=== PATIENT | male | born 1945 | race Caucasian/White ===

== ENCOUNTER 2017-08-10 07:00 | Day surgery (SDC) | payer MEDICARE ==
[~2017-08-10] VITALS: Ht 157.5 cm; Wt 82.6 kg
[~2017-08-10 07:00] MED LIST: ACETAMIN500 M1 OR; ACIPHEX20 MG OR; BABY ASPIRIN81 MG OR; BACTRIM DS1 TAB PO; COUMADIN5 MG OR; COUMADIN7.5 MG OR; DIGOXIN0.125 MG PO; DIGOXIN0.25 MG OR; FENOFIBRATE145 MG PO; FISH OIL1000 MG PO; FISH OIL1200 M1 OR; LEVOTHYROXIN25 MC1 OR; LEVOTHYROXIN50 MC1 OR; LORATADINE10 M1 PO; LORTAB 5/3255 MG PO; LORTAB 7.5 OR; LOVENOX 8080 MG/0.8 SC; METOPROL TAR100 MG PO; METOPROLOL100 M1 OR; MULTI 501 PO; NADOLOL20 MG PO; PRAVASTATIN20 MG PO; PRILOSEC40 MG PO; PROTONIX40 M2 OR; SIMVASTATIN10 MG PO; TERAZOSIN2 MG OR; TRICOR145 MG OR; VYTORIN 10/201 TAB OR; VYTORIN 10/401 TAB OR; [UNRECOGNIZED DRUG - OTHER] PO; [UNRECOGNIZED DRUG - REMARK]
[2017-08-10 09:25] VITALS: BP 123/73
== END 2017-08-10 08:38 | disposition home or self-care (01) ==
LOC: ENDO 07:00 → PO 08:40 → ORM 10:15
PROVIDERS: ATTEND Surgery
PROC: 0DJD8ZZ Inspection of Lower Intestinal Tract, Via Natural or Artificial Opening Endoscopic (ICD-10-PCS; principal; 2017-08-10)
PROC: 0DB58ZX Excision of Esophagus, Via Natural or Artificial Opening Endoscopic, Diagnostic (ICD-10-PCS; 2017-08-10)
DX: K62.5 Hemorrhage of anus and rectum (principal); K21.0 Gastro-esophageal reflux disease with esophagitis; K29.70 Gastritis, unspecified, without bleeding; K64.8 Other hemorrhoids; I48.91 Unspecified atrial fibrillation; E78.5 Hyperlipidemia, unspecified; E03.9 Hypothyroidism, unspecified; Z79.01 Long term (current) use of anticoagulants; Z86.010 Personal history of colon polyps

== ENCOUNTER → 2017-12-14 | Outpatient (REF) | payer MEDICARE ==
[2017-12-14 13:32] LABS: C. DIFFICILE TOXIN A&B NEGATIVE (NEGATIVE)
== END | disposition home or self-care (01) ==
LOC: LAB 10:49
PROVIDERS: ATTEND Nurse Practitioner
DX: R19.7 Diarrhea, unspecified (principal)

== ENCOUNTER → 2018-04-28 | Outpatient (REF) | payer MEDICARE | END | disposition home or self-care (01) | LOC: CT 08:44 | PROVIDERS: ATTEND Nurse Practitioner | DX: R10.9 Unspecified abdominal pain (principal); R10.2 Pelvic and perineal pain ==

== ENCOUNTER → 2018-05-12 | Outpatient (REF) | payer MEDICARE | END | disposition home or self-care (01) | LOC: ULTRASND 10:25 | PROVIDERS: ATTEND Surgery | DX: N45.1 Epididymitis (principal) ==

== ENCOUNTER → 2018-05-23 | Outpatient (REF) | payer MEDICARE ==
[2018-05-23 08:29] LABS: INTERNATIONAL NORMALIZED RATIO 2.8 RATIO (0.7-1.3); PROTHROMBIN TIME 28.9 SECONDS (9.0-12.5)
== END | disposition home or self-care (01) ==
LOC: LAB 07:38
PROVIDERS: ATTEND Internal Medicine
DX: Z51.81 Encounter for therapeutic drug level monitoring (principal); Z79.01 Long term (current) use of anticoagulants

== ENCOUNTER 2019-02-02 13:02 | Observation (INO) | payer MEDICARE ==
[~2019-02-02] VITALS: Ht 157.5 cm; Wt 81.0 kg
--- NOTE | 2019-02-02 13:23 | NUR ---
PT TRIAGED AND BACK TO WAITING ROOM, RELATED BUSY ER. PT VERBALIZES UNDERSTANDING WILL PULL SOON ROOM AVAILABLE
--- NOTE | 2019-02-02 13:49 | NUR ---
DAVID AT BEDSIDE FOR ASSESSMENT
[2019-02-02] MEDS ORDERED: METOPROL TAR100 MG PO (14:12)
[2019-02-02] MEDS ORDERED: LIPITOR40 M1 PO (14:12)
[2019-02-02] MEDS ORDERED: TAMSULOSIN HCL0.4 MG PO (14:22)
[2019-02-02 14:30] LABS: HEMOGLOBIN 15.1 g/dl (14.0-18.0); MEAN CELL VOLUME 96.6 fL CALC (80.0-100.0); MEAN CORPUSCULAR HGB 33.9 pG CALC (26.0-32.0); MEAN CORPUSCULAR HGB CONC 35.1 g/L CALC (32.0-36.0); NEUT# 2.25 thou/uL (1.82-7.42); RED BLOOD COUNT 4.45 mill/uL (4.70-6.10)
--- NOTE | 2019-02-02 14:37 | NUR ---
PT SITTING UP ON STRETHCER; NO S/S OF DISTRESS NOTED; MEAL TRAY PROVIDED; VSS; WILL CONTINUE TO MONITOR
[2019-02-02 15:10] LABS: ALBUMIN 3.3 g/dL (3.2-5.0); ALKALINE PHOSPHATASE 177 u/l (38-126); ANION GAP 16 (6-22 (CALC)); BUN 18 mg/dL (8-23); BUN/CREATININE RATIO 19 (12-20 (CALC)); CARBON DIOXIDE 22 mmol/l (22-30); CHLORIDE 104 mmol/l (95-108); GFR > 60 ML/MIN (>=60 (CALC)); GFR FOR AFR.AMER. > 60 ML/MIN (>=60 (CALC)); POTASSIUM 4.8 mmol/l (3.5-5.1); SGOT/AST 641 u/l (19-48); SODIUM 137 mmol/l (137-146); TOTAL PROTEIN 7.2 g/dL (6.3-8.2)
--- NOTE | 2019-02-02 15:23 | NUR ---
PT RESTING ON STRETCHER; NO S/S OF DISTRESS NOTED; VSS; MONITORING DEVICES IN PLACE; WILL CONTINUE TO MONITOR
[2019-02-02 15:59] LABS: ACT PARTIAL THROMBO TIME 81.5 SECONDS (20.0-32.5)
--- NOTE | 2019-02-02 16:20 | NUR ---
PT RESTING ON STRETCHER; NO S/S OF DISTRESS NOTED; PT UPDATED ON POC AND CONTINUE WAIT TIME; CALL LIGHT WITHIN REACH WILL CONTINUE TO MONITOR
[2019-02-02 16:28] LABS: PROTHROMBIN TIME > 125.0 SECONDS (9.0-12.5)
[2019-02-02 16:47] LABS: URINE BILIRUBIN - DIPSTICK NEGATIVE (NEGATIVE); URINE BLOOD DIPSTICK NEGATIVE (NEGATIVE); URINE COLOR YELLOW; URINE GLUCOSE - DIPSTICK NEGATIVE (NEGATIVE); URINE KETONE NEGATIVE (NEGATIVE); URINE LEUK ESTERASE NEGATIVE (NEGATIVE); URINE NITRITE - DIPSTICK NEGATIVE (Negative); URINE PROTEIN - DIPSTICK NEGATIVE (NEG-TRACE); URINE SPECIFIC GRAVITY 1.025; URINE UROBILINOGEN - DIPSTICK 0.2 E.U./dL (0.2)
--- NOTE | 2019-02-02 17:20 | NUR ---
PT RESTING ON STRETCHER; NO S/S OF DISTRESS NOTED; VSS; WILL CONTINUE TO MONITOR
--- NOTE | 2019-02-02 17:54 | NUR ---
PT MEDICATED WITH VIT K PER MAR; PT EDICATED ON PURPOSE AND INDICATION; PT VERBALIZES UNDERSTANDING; CALL LIGHT WITHIN REACH WILL CONTINUE TO MONITOR
--- NOTE | 2019-02-02 18:54 | NUR ---
BEDSIDE REPORT GIVEN TO MARY, RN
--- NOTE | 2019-02-02 20:10 | NUR ---
PHONE REPORT TO NURSE FU ON [facility]
--- NOTE | 2019-02-02 20:15 | NUR ---
PT ARRIVED TO THE FLOOR VIA WHEELCHAIR, ACCOMPANIED BY ED STAFF. PT ALERT AND ORIENTED, PT AMBULATED FROM WHEELCHAIR TO BED. VS OBTAINED AND ASSESSMENT COMPLETED. RESPIRATIONS ARE EVEN AND UNLABORED ON RA. LUNGS SOUND CLEAR. PEDAL PULSES STRONG. PT REPORTS MILD PAIN IN RIGHT ARM STATING HE BUMPED IT THE NIGHT BEFORE TO CATCH HIMSELF FROM FALLING, PT DENIES WANTING ANYTHING FOR PAIN STATING ITS MORE IRRITATING THAN PAINFUL. #20 RAC PATENT AND APPEARS HEALTHY. BRUISING NOTED THROUGHOUT PT BODY. PT PROVIDED WITH A BOTTLE OF WATER PER REQUEST. PT ORIENTED TO ROOM AND CALL EDWARDS SYSTEM. SAFETY PRECAUTIONS IN PLACE. WILL CONTINUE TO MONITOR.
--- NOTE | 2019-02-02 20:15 | NUR ---
PT TRANSPOPTED TO [id number] AND REPORT UPDATED TO NURSE FU THERE
[2019-02-02 23:43] VITALS: BP 132/84
--- NOTE | 2019-02-02 23:49 | NUR ---
PT RESTING IN BED, ALERT AND ORIENTED. FFP INFUSING, PT TOLERATING WELL. SAFETY PRECAUTIONS IN PLACE. WILL CONTINUE TO MONITOR.
[2019-02-03] VITALS (12 sets, daily range): BP systolic 128–167; BP diastolic 64–96
--- NOTE | 2019-02-03 03:40 | NUR ---
PT RESTING IN BED ALERT AND ORIENTED. SECOND BAG OF FFP INFUSING, PT TOLERATING WELL. RESPIRATIONS EVEN AND UNLABORED ON RA. SAFETY PRECAUTIONS IN PLACE. WILL CONTINUE TO MONITOR.
--- NOTE | 2019-02-03 08:00 | NUR ---
PT IS RESTING WITH NO DISTRESS NOTED IV SITE IS FREE FROM REDNESS OR EDEMA. TELE MONITOR IN PLACE.
--- NOTE | 2019-02-03 08:30 | NUR ---
ASSESSMENT IS COMPLETED: IV SITE IS FREE FROM REDNESS OR EDEMA. HR IS REG,PULSES ARE STRONG X4, ABD IS SOFT WITH ACTIVE BS,.BREATH SOUNDS ARE CLEAR,BILATERALLY, TELE MONITOR IN PLACE. CONTINUE TO OBSERVE AND MONITOR.
[2019-02-03 11:26] LABS: IMMATURE GRANULOCYTES 0.4 % (0.0-5.0); MEAN CELL VOLUME 96.2 fL CALC (80.0-100.0); MEAN CORPUSCULAR HGB 33.5 pG CALC (26.0-32.0); MEAN CORPUSCULAR HGB CONC 34.8 g/L CALC (32.0-36.0); NEUT# 2.53 thou/uL (1.82-7.42); RED BLOOD COUNT 3.67 mill/uL (4.70-6.10); RED CELL DISTRI WIDTH 14.5 % (11.5-15.5)
[2019-02-03 11:36] LABS: HEMOGLOBIN 12.3 g/dl (14.0-18.0)
[2019-02-03 11:37] LABS: HEMATOCRIT 35.3 % (39.0-50.0)
[2019-02-03 11:45] LABS: ALKALINE PHOSPHATASE 152 u/l (38-126); BILIRUBIN, TOTAL 2.2 mg/dL (0.0-1.4); BUN 13 mg/dL (8-23); BUN/CREATININE RATIO 16 (12-20 (CALC)); CHLORIDE 101 mmol/l (95-108); CREATININE 0.8 mg/dL (0.7-1.3); GFR > 60 ML/MIN (>=60 (CALC)); GFR FOR AFR.AMER. > 60 ML/MIN (>=60 (CALC)); SGOT/AST 471 u/l (19-48); SODIUM 134 mmol/l (137-146); TOTAL PROTEIN 6.6 g/dL (6.3-8.2)
[2019-02-03 11:51] LABS: INTERNATIONAL NORMALIZED RATIO 1.9 RATIO (0.7-1.3)
[2019-02-03 11:52] LABS: PROTHROMBIN TIME 19.5 SECONDS (9.0-12.5)
[2019-02-03 11:59] LABS: ANION GAP 9 (6-22 (CALC)); CARBON DIOXIDE 27 mmol/l (22-30); POTASSIUM 3.4 mmol/l (3.5-5.1)
--- NOTE | 2019-02-03 12:00 | NUR ---
PT IS RELAXING IN THE ROOM NO DISTRESS NOTED. IV SITE IS FREE FROM REDNESS OR EDEMA. CONTINUE TO OBSERVE AND MONITOR.,
--- NOTE | 2019-02-03 16:00 | NUR ---
PT IS RELAXING IN BED WITH NO DISTRESS NOTED. IV SITE IS FREE FROM REDNESS OR EDEMA.
--- NOTE | 2019-02-03 17:09 | NUR ---
PT STARTED TO VOMIT, STATING " THIS HAPPENS AT HOME ALL OF THE TIME, WHEN I SMELL FOOD. IT JUST STARTS."OFFERED TO GET NAUSEA MEDICATION STATED" NO I DON'T NEED IT" GAVE A GINGERALE.
--- NOTE | 2019-02-03 20:00 | NUR ---
PATIENT RESTING IN BED-AWAKE ALERT AND ORIENTEDX3. PATIENT WITH NO COMPLAINTS AT THIS TIME. TELE MONITOR IN PLACE. SALINE LOCK TO RIGHT AC INTACT AND APPEARS HEALTHY AT THIS TIME. SAFETY PRECAUTIONS REINFORCED. CALL LIGHT IN REACH. WILL CONT TO MONITOR.
--- NOTE | 2019-02-04 | NUR ---
PATIENT APPEARS SLEEPING AT THIS TIME WITH EYES CLOSED. RESP ARE EVEN AND UNLABORED. TELE MONITOR IN PLACE. CALL LIGHT IN REACH. WILL CONT TO MONITOR.
[2019-02-04 04:06] VITALS: BP 167/80
--- NOTE | 2019-02-04 05:12 | NUR ---
PATIENT RESTING IN BED AT THIS TIME-LAB DRAWN OBTAINED FROM RIGHT AC IV SITE WITHOUT ANY DIFFICULTY PER [facility] PROTOCOL. GOOD BLOOD RETURN-FLUSHES WELL. PATIENT MEDICATED WITH TYLENOL 1000MG PO FOR HEADACHE. PATIENT ALSO RECEIVED HIS METOPROLOL ORDERED FOR HTN. ATTEMPTED TO EDUCATED PATIENT REGUARDING HIS ETOH INTAKE AND THE EFFECT THAT DAILY DRINKING MAY HAVE ON HIS BODY. WILL NEED REINFORCEMENT. CALL LIGHT IN REACH. WILL CONT TO MONITOR.
[2019-02-04 05:51] LABS: INTERNATIONAL NORMALIZED RATIO 1.8 RATIO (0.7-1.3); PROTHROMBIN TIME 18.7 SECONDS (9.0-12.5)
[2019-02-04 05:54] LABS: ALBUMIN 2.8 g/dL (3.2-5.0); ALKALINE PHOSPHATASE 174 u/l (38-126); ANION GAP 8 (6-22 (CALC)); BILIRUBIN, TOTAL 2.4 mg/dL (0.0-1.4); BUN 8 mg/dL (8-23); BUN/CREATININE RATIO 10 (12-20 (CALC)); CARBON DIOXIDE 27 mmol/l (22-30); CHLORIDE 104 mmol/l (95-108); CREATININE 0.8 mg/dL (0.7-1.3); GFR > 60 ML/MIN (>=60 (CALC)); GFR FOR AFR.AMER. > 60 ML/MIN (>=60 (CALC)); POTASSIUM 3.6 mmol/l (3.5-5.1); SGOT/AST 271 u/l (19-48); SODIUM 136 mmol/l (137-146); TOTAL PROTEIN 6.2 g/dL (6.3-8.2)
[2019-02-04 05:56] LABS: DIGOXIN < 0.4 ng/mL (0.8-2.0)
[2019-02-04 06:39] VITALS: BP 107/58
[2019-02-04 08:20] VITALS: BP 144/76
--- NOTE | 2019-02-04 08:20 | NUR ---
ASSESSMENT IS COMPLETED: IV SITE IS FREE FROM REDNESS OR EDEMA HR IS REG,PULSES ARE STRONG X4, ABD IS SOFT WITH ACTIVE BS. BREATH SOUNDS ARE CLEAR, BILATERALLY. TELE MONITOR IN PLACE. CONTINUE TO OBSERVE AND MONITOR
[2019-02-04 10:45] VITALS: BP 132/88
--- NOTE | 2019-02-04 12:00 | NUR ---
PT IS RELAXING IN BED WITH NO DISTRESS NOTED. IV SITE IS FREE FROM REDNESS OR EDEMA.
--- NOTE | 2019-02-04 16:00 | NUR ---
PT IS RELAXING IN BED WAITING FOR DISCHARGE INSTRUCTIONS
[2019-02-04 16:04] VITALS: BP 137/85
[2019-02-04] MEDS ORDERED: COUMADIN5 MG OR (17:17)
[2019-02-04 17:28] VITALS: BP 137/85
--- NOTE | 2019-02-04 17:47 | NUR ---
DISCHARGE INSTRUCTIONS GIVEN AND VERBALIZED UNDERSTANDING. IV SITE DISCONTINUED CATHETER INTACT. FAMILY IN THE ROOM. CONTINUE TO OSBERVE AND MONITOR.
== END 2019-02-04 18:05 | disposition home or self-care (01) ==
LOC: ED 13:02 → ED-I 16:13 → ED 17:53 → MS2 17:54
PROVIDERS: Nurse Practitioner Family; ADMIT Internal Medicine; ATTEND Internal Medicine
PROC: 30233K1 Transfusion of Nonautologous Frozen Plasma into Peripheral Vein, Percutaneous Approach (ICD-10-PCS; principal; 2019-02-02)
PROC: 30233K1 Transfusion of Nonautologous Frozen Plasma into Peripheral Vein, Percutaneous Approach (ICD-10-PCS; 2019-02-03)
DX: D68.32 Hemorrhagic disorder due to extrinsic circulating anticoagulants (principal); R04.0 Epistaxis; R23.3 Spontaneous ecchymoses; R58 Hemorrhage, not elsewhere classified; T45.515A Adverse effect of anticoagulants, initial encounter; R79.89 Other specified abnormal findings of blood chemistry; F10.20 Alcohol dependence, uncomplicated; I48.91 Unspecified atrial fibrillation; I10 Essential (primary) hypertension; E87.6 Hypokalemia; E03.9 Hypothyroidism, unspecified; E78.5 Hyperlipidemia, unspecified; Z79.01 Long term (current) use of anticoagulants
CPT/HCPCS: G0378

== ENCOUNTER 2019-02-09 15:44 | Emergency (ER) | payer MEDICARE ==
[~2019-02-09] VITALS: Ht 157.5 cm; Wt 82.0 kg
[~2019-02-09 15:44] MED LIST changes: +LIPITOR40 M1 PO; +TAMSULOSIN HCL0.4 MG PO
[2019-02-09] MEDS ORDERED: COUMADIN5 MG OR (16:36)
[2019-02-09 16:57] VITALS: BP 130/60
[2019-02-09] MEDS ORDERED: BACTROBAN TOP (17:01)
== END 2019-02-09 16:57 | disposition home or self-care (01) ==
LOC: ED 15:44
DX: S50.11XD Contusion of right forearm, subsequent encounter (principal); S90.02XD Contusion of left ankle, subsequent encounter; W19.XXXD Unspecified fall, subsequent encounter

== ENCOUNTER 2021-03-21 09:43 | Observation (INO) | payer MEDICARE ==
[~2021-03-21] VITALS: Ht 157.5 cm; Wt 84.0 kg
[2021-03-21] VITALS (7 sets, daily range): BP systolic 130–173; BP diastolic 72–91
[~2021-03-21 09:43] MED LIST changes: +BACTROBAN TOP; -LEVOTHYROXIN50 MC1 OR; +LEVOTHYROXIN50 MC1 PO
[2021-03-21 10:45] LABS: HEMATOCRIT 45.5 % (39.0-50.0); IMMATURE GRANULOCYTES 0.9 % (0.0-5.0); MEAN CORPUSCULAR HGB 30.6 pG CALC (26.0-32.0); MEAN CORPUSCULAR HGB CONC 31.9 g/dL CAL (32.0-36.0); NEUT# 5.78 thou/uL (1.82-7.42); RED BLOOD COUNT 4.74 mill/uL (4.70-6.10)
[2021-03-21 10:48] LABS: HEMOGLOBIN 14.5 g/dl (14.0-18.0)
[2021-03-21 10:59] LABS: ALBUMIN 4.2 g/dL (3.2-5.0); ALKALINE PHOSPHATASE 71 u/l (38-126); ANION GAP 12 (6-22 (CALC)); BILIRUBIN, TOTAL 0.7 mg/dL (0.0-1.4); BUN 11 mg/dL (8-23); BUN/CREATININE RATIO 11 (12-20 (CALC)); CARBON DIOXIDE 27 mmol/l (22-30); CHLORIDE 105 mmol/l (95-108); GFR > 60 ML/MIN (>=60 (CALC)); GFR FOR AFR.AMER. > 60 ML/MIN (>=60 (CALC)); POTASSIUM 5.1 mmol/l (3.5-5.1); SGOT/AST 28 u/l (19-48); SODIUM 139 mmol/l (137-146); TOTAL PROTEIN 7.7 g/dL (6.3-8.2)
[2021-03-21 11:03] LABS: INTERNATIONAL NORMALIZED RATIO 1.3 RATIO (0.7-1.3); PROTHROMBIN TIME 13.5 SECONDS (9.0-12.5)
[2021-03-21 11:52] LABS: C-REACTIVE PROTEIN < 0.5 mg/dL (0-0.9); CALCULATED LDLCHOLESTEROL 113 mg/dL (62-129 (CALC)); CHOLESTEROL HDL RATIO 4.1 (<4.4 (CALC)); HDL CHOLESTEROL 48 mg/dL (>=40); MAGNESIUM 1.8 mg/dL (1.6-2.3); TOTAL CHOLESTEROL 195 mg/dl (0-199); TOTAL TRIGLYCERIDES 168 mg/dl (30-149); VLDL CHOLESTROL 34 mg/dl (0-38 (CALC))
[2021-03-21 12:47] LABS: URINE BILIRUBIN - DIPSTICK NEGATIVE (NEGATIVE); URINE BLOOD DIPSTICK NEGATIVE (NEGATIVE); URINE COLOR YELLOW; URINE GLUCOSE - DIPSTICK NEGATIVE (NEGATIVE); URINE KETONE NEGATIVE (NEGATIVE); URINE LEUK ESTERASE NEGATIVE (NEGATIVE); URINE PH 5.5 (4.5-8.0); URINE PROTEIN - DIPSTICK NEGATIVE (NEG-TRACE); URINE SPECIFIC GRAVITY 1.015; URINE UROBILINOGEN - DIPSTICK 0.2 E.U./dL (0.2)
[2021-03-21 12:49] LABS: URINE NITRITE - DIPSTICK NEGATIVE (Negative)
[2021-03-21] MEDS ORDERED: FENOFIBRATE145 MG PO (18:21)
[2021-03-21] MEDS ORDERED: ASPIRIN81 MG PO (18:23)
[2021-03-21] MEDS ORDERED: MULTIVITAMI1 PO (18:23)
[2021-03-21] MEDS ORDERED: TAMSULOSIN HCL0.4 MG PO (18:23)
[2021-03-21] MEDS ORDERED: LOPRESSOR 550 MG/TAB PO (18:24)
[2021-03-21] MEDS ORDERED: XARELTO10 MG PO (18:25)
[2021-03-21] MEDS ORDERED: DIGOXIN0.125 MG PO (18:25)
[2021-03-22] VITALS (8 sets, daily range): BP systolic 101–147; BP diastolic 53–86
[2021-03-22 05:42] LABS: HEMATOCRIT 41.4 % (39.0-50.0); HEMOGLOBIN 13.4 g/dl (14.0-18.0); MEAN CELL VOLUME 95.4 fL CALC (80.0-100.0); MEAN CORPUSCULAR HGB 30.9 pG CALC (26.0-32.0); MEAN CORPUSCULAR HGB CONC 32.4 g/dL CAL (32.0-36.0); RED BLOOD COUNT 4.34 mill/uL (4.70-6.10); RED CELL DISTRI WIDTH 13.3 % (11.5-15.5)
[2021-03-22 05:54] LABS: ANION GAP 10 (6-22 (CALC)); BUN 15 mg/dL (8-23); BUN/CREATININE RATIO 19 (12-20 (CALC)); CARBON DIOXIDE 24 mmol/l (22-30); CHLORIDE 105 mmol/l (95-108); CREATININE 0.8 mg/dL (0.7-1.3); GFR > 60 ML/MIN (>=60 (CALC)); GFR FOR AFR.AMER. > 60 ML/MIN (>=60 (CALC)); MAGNESIUM 1.8 mg/dL (1.6-2.3); SODIUM 135 mmol/l (137-146)
[2021-03-22 05:55] LABS: POTASSIUM 3.7 mmol/l (3.5-5.1)
== END 2021-03-22 11:15 | disposition home or self-care (01) ==
LOC: ED 09:43 → ED-I 11:00 → ED 11:30 → ICU 11:31
PROVIDERS: Family Medicine; ADMIT Hospitalist; ATTEND Hospitalist
DX: R42 Dizziness and giddiness (principal); I10 Essential (primary) hypertension; I48.91 Unspecified atrial fibrillation; E78.5 Hyperlipidemia, unspecified; E03.9 Hypothyroidism, unspecified; I25.10 Atherosclerotic heart disease of native coronary artery without angina pectoris; N40.0 Benign prostatic hyperplasia without lower urinary tract symptoms; M54.50 Low back pain, unspecified; G89.29 Other chronic pain; Z79.01 Long term (current) use of anticoagulants; Z20.822 Contact with and (suspected) exposure to COVID-19
CPT/HCPCS: J2060; Q9967

== ENCOUNTER 2021-10-17 18:36 | Emergency (ER) | payer MEDICARE ==
[~2021-10-17] VITALS: Ht 157.5 cm; Wt 86.3 kg
[2021-10-17] VITALS (9 sets, daily range): BP systolic 95–139; BP diastolic 59–112
[~2021-10-17 18:36] MED LIST changes: +ASPIRIN81 MG PO; +LOPRESSOR 550 MG/TAB PO; +MULTIVITAMI1 PO; +XARELTO10 MG PO
[2021-10-17] MEDS ORDERED: NAPROXEN500 MG PO (19:36)
== END 2021-10-17 20:21 | disposition home or self-care (01) ==
LOC: ED 18:36
DX: S63.92XA Sprain of unspecified part of left wrist and hand, initial encounter (principal); I10 Essential (primary) hypertension; W01.0XXA Fall on same level from slipping, tripping and stumbling without subsequent striking against object, initial encounter; Y92.009 Unspecified place in unspecified non-institutional (private) residence as the place of occurrence of the external cause

== ENCOUNTER 2023-05-02 12:25 | Emergency (ER) | payer MEDICARE ==
[~2023-05-02] VITALS: Ht 157.5 cm; Wt 85.3 kg
[2023-05-02] VITALS (15 sets, daily range): BP systolic 93–142; BP diastolic 59–87
[~2023-05-02 12:25] MED LIST changes: +FISH OIL1000 M1 PO; +NAPROXEN500 MG PO
[2023-05-02 13:31] LABS: BASO% 0.4 % (0-3); EOS% 5.1 % (0-8); HEMATOCRIT 44.8 % (39.0-50.0); HEMOGLOBIN 14.5 g/dl (14.0-18.0); IMMATURE GRANULOCYTES 0.3 % (0.0-5.0); LYMPH% 15.9 % (15-41); MEAN CELL VOLUME 92.9 fL CALC (80.0-100.0); MEAN CORPUSCULAR HGB 30.1 pG CALC (26.0-32.0); MEAN CORPUSCULAR HGB CONC 32.4 g/dL CAL (32.0-36.0); MONO% 13.8 % (2-13); NEUT# 5.05 thou/uL (1.82-7.42); NEUT% 64.5 % (42-76); RED BLOOD COUNT 4.82 mill/uL (4.70-6.10); RED CELL DISTRI WIDTH 12.7 % (11.5-15.5)
[2023-05-02 13:46] LABS: ALBUMIN 4.3 g/dL (3.2-5.0); ALKALINE PHOSPHATASE 56 u/l (38-126); ANION GAP 11 (6-22 (CALC)); BILIRUBIN, TOTAL 0.8 mg/dL (0.2-1.3); BUN 15 mg/dL (8-23); BUN/CREATININE RATIO 14 (12-20 (CALC)); CARBON DIOXIDE 25 mmol/l (22-30); CHLORIDE 104 mmol/l (95-108); CREATININE 1.1 mg/dL (0.7-1.3); GFR FOR AFR.AMER. > 60 ML/MIN (>=60 (CALC)); GFR OTHER RACES > 60 ML/MIN (>=60 (CALC)); POTASSIUM 4.4 mmol/l (3.5-5.1); SGOT/AST 32 u/l (19-48); SODIUM 136 mmol/l (137-146); TOTAL PROTEIN 7.8 g/dL (6.3-8.2)
[2023-05-02] MEDS ORDERED: methylPREDNISolone SODIUM SUCC 125 MG/2 ML SDV IV ONE (13:55)
[2023-05-02] MEDS ORDERED: IPRATROPIUM-Albuterol 0.5MG-2.5MG/3 ML NEB ONE (13:55)
[2023-05-02 13:57] LABS: INTERNATIONAL NORMALIZED RATIO 1.2 RATIO (0.7-1.3); PROTHROMBIN TIME 11.5 SECONDS (9.0-12.5)
[2023-05-02 14:28] LABS: URINE BILIRUBIN - DIPSTICK Negative (NEGATIVE); URINE BLOOD DIPSTICK Negative (NEGATIVE); URINE GLUCOSE - DIPSTICK Negative (NEGATIVE); URINE KETONE Negative (NEGATIVE); URINE LEUK ESTERASE Negative (NEGATIVE); URINE NITRITE - DIPSTICK Negative (Negative); URINE PH 5.5 (4.5-8.0); URINE PROTEIN - DIPSTICK Negative (NEG-TRACE); URINE UROBILINOGEN - DIPSTICK 0.2 E.U./dL (0.2)
[2023-05-02 14:29] LABS: URINE COLOR Yellow
[2023-05-02] MEDS ORDERED: FUROSEMIDE 40 MG/4 ML SDV IV ONE (15:05)
[2023-05-02] MEDS ORDERED: ZYRTEC10 MG PO (15:25)
[2023-05-02] MEDS ORDERED: LASIX 20 MG TAB20 MG PO (15:25)
[2023-05-02] MEDS ORDERED: PREDNISONE20 MG PO (15:25)
== END 2023-05-02 15:48 | disposition home or self-care (01) ==
LOC: ED 12:25
PROVIDERS: Nurse Practitioner
DX: U07.1 COVID-19 (principal); J44.1 Chronic obstructive pulmonary disease with (acute) exacerbation; I10 Essential (primary) hypertension

== ENCOUNTER 2024-04-02 14:13 | Emergency (ER) | payer MEDICARE ==
[~2024-04-02] VITALS: Ht 157.5 cm; Wt 82.0 kg
[2024-04-02] VITALS (11 sets, daily range): BP systolic 108–138; BP diastolic 63–113
[~2024-04-02 14:13] MED LIST changes: +LASIX 20 MG TAB20 MG PO; +LEVAQUIN750 M1 PO; +PREDNISONE20 MG PO; +VENTOLIN HFA IN; +ZYRTEC10 MG PO
[2024-04-02] MEDS ORDERED: ZPAK PO (18:11)
[2024-04-02] MEDS ORDERED: BENZONATATE200 MG PO (18:11)
[2024-04-02] MEDS ORDERED: LEVOCETIRIZINE D5 MG PO (18:11)
[2024-04-02] MEDS ORDERED: ALLERGY RE50 MCG/ACT (18:13)
== END 2024-04-02 18:23 | disposition home or self-care (01) ==
LOC: ED 14:13
DX: J32.9 Chronic sinusitis, unspecified (principal); I10 Essential (primary) hypertension; Z20.822 Contact with and (suspected) exposure to COVID-19